=== PATIENT | male | born 1955 | race American Indian/Alaskan Native ===

== ENCOUNTER 2016-12-23 08:35 | Emergency (ER) | payer SELFPAY ==
[2016-12-23 09:18] LABS: Basophils % (Auto) 0.4 % (0.0-1.8); Eosinophils % (Auto) 1.4 % (0.0-4.3); Hematocrit 41.3 % (35.5-45.6); Hemoglobin 13.7 gm/dl (11.8-15.2); Mean Corpuscular HGB Conc 33 % (32-34); Mean Corpuscular Hemoglobin 29 pg (28-32); Mean Corpuscular Volume 88 fl (84-94); Platelet Count 232 K/mm3 (140-440); Red Blood Count 4.71 M/mm3 (3.65-5.03); Red Cell Distribution Width 16.6 % (13.2-15.2)
[2016-12-23 09:26] LABS: Alanine Aminotransferase 10 units/L (7-56); Albumin 3.8 g/dL (3.9-5); Albumin/Globulin Ratio 0.8 %; Alkaline Phosphatase 99 units/L (35-129); Anion Gap 16 mmol/L; Bilirubin,Total 0.3 mg/dL (0.1-1.2); Blood Urea Nitrogen 18 mg/dL (9-20); Calcium 9.5 mg/dL (8.4-10.2); Carbon Dioxide 28 mmol/L (22-30); Chloride 99.2 mmol/L (98-107); Glucose 79 mg/dL (75-100); Lipase 34 units/L (13-60); Potassium 4.9 mmol/L (3.6-5.0); Sodium 138 mmol/L (137-145); Total Protein 8.3 g/dL (6.3-8.2)
[2016-12-23] MEDS ORDERED: NACL 0.9% 1000 ML 1,000 ML IV ONE (11:41)
--- NOTE | 2016-12-23 11:49 | Emergency Department Report ---
HPI - General Chief Complaint: Abdominal Pain Time Seen by Provider: 12/23/16 11:43 - HPI HPI: Chief complaint: Difficulty swallowing HPI: Patient is a 61-year-old male with a history of GERD and hypertension who states for the last several weeks is unable to eat anything solid without chewing it into very small pieces. Patient states that he doesn't do that it comes back up. Patient states if he drinks too quickly even that woke him back up. Patient denies any pain. Patient is out of his blood pressure medicine and states he was going to [facility] today to have that refilled. She denies any fever, chest pain, diarrhea, abdominal pain. Mode of arrival: [private car] Source: [Patient] Began: Several weeks ago Duration: 2 weeks ago Context: Patient has history of GERD Quality: Pain-free Severity: 0 out of 10 Improved with: See above Worsened with: See above Associated signs and symptoms: See above ED Past Medical Hx - Past Medical History Previous Medical History?: Yes Hx Hypertension: Yes Additional medical history: Angioedema - Surgical History Past Surgical History?: No - Social History Smoking Status: Current Every Day Smoker Substance Use Type: None - Medications Home Medications: Home Medications Medication Instructions Recorded Confirmed Last Taken Type Pantoprazole [Protonix] 40 mg PO QDAY #30 tablet 04/05/16 Unknown Rx Hydrochlorothiazide [HCTZ] 25 mg PO QDAY #30 tablet 12/23/16 Unknown Rx ED Review of Systems ROS: Stated complaint: ABD PAIN Other details as noted in HPI ROS Constitutional: No fever ENT: No uri symptoms Cardiovascular: No chest pain Respiratory: No sob or cough GI: No nausea vomiting or diarrhea : No dysuria frequency or urgency, Skin: No rash Neuro: No focal weakness or numbness Psych: No depression Dragan/lymph: No edema Physical Exam - Physical Exam Vital Signs: Vital Signs 12/23/16 08:43 Temperature 98.0 F Pulse Rate 72 Respiratory 18 Rate Blood Pressure 171/104 O2 Sat by Pulse 98 Oximetry Physical Exam: GENERAL: The patient is well-developed well-nourished []. [] HEENT: Normocephalic. Atraumatic. Extraocular motions are intact. Patient has moist mucous membranes. NECK: Supple. No meningitic signs are noted. There is no adenopathy noted. CHEST/LUNGS: Clear to auscultation. There is no respiratory distress noted. HEART/CARDIOVASCULAR: Regular. There is no tachycardia. There is no gallop rub or murmur. ABDOMEN: Abdomen is soft, nontender. Patient has normal bowel sounds. There is no abdominal distention. SKIN: There is no rash. There is no edema. There is no diaphoresis. NEURO: The patient is awake, alert, and oriented. The patient is cooperative. The patient has no focal neurologic deficits. The patient has normal speech. MUSCULOSKELETAL: There is no tenderness or deformity. There is no limitation range of motion. There is no evidence of acute injury. ED Course Vital Signs 12/23/16 08:43 Temperature 98.0 F Pulse Rate 72 Respiratory 18 Rate Blood Pressure 171/104 O2 Sat by Pulse 98 Oximetry - Reevaluation(s) Reevaluation #1: 12/23/16 12:09 Discussed patient with nurse practitioner for [facility] Terri Pascual. She will see the patient in the emergency department and arrange for an outpatient upper endoscopy. ED Medical Decision Making - Lab Data Result diagrams: 12/23/16 08:55 12/23/16 08:55 Laboratory Tests 12/23/16 08:55 Total Protein 8.3 H Albumin 3.8 L Lipase 34 Critical care attestation.: If time is entered above; I have spent that time in minutes in the direct care of this critically ill patient, excluding procedure time. ED Disposition Clinical Impression: Essential hypertension Dysphagia Qualifiers: Dysphagia type: unspecified Qualified Code(s): R13.10 - Dysphagia, unspecified Disposition: DISCHARGED TO HOME OR SELFCARE Is pt being admited?: No Does the pt Need Aspirin: No Condition: Stable Instructions: Esophageal Stricture (ED), Hypertension (ED) Additional Instructions: Take Pepcid complete OTC daily. Be sure to chew the tablet well. Prescriptions: Hydrochlorothiazide [HCTZ] 25 mg PO QDAY #30 tablet Referrals: PRIMARY CARE, [Primary Care Provider] - 3-5 Days [facility] [Provider Group] - 3-5 Days Time of Disposition: 12:04
[2016-12-23 12:27] VITALS: BP 171/94
== END 2016-12-23 12:27 | disposition home or self-care (01) ==
LOC: ED 08:35
DX: R13.10 Dysphagia, unspecified (principal); I10 Essential (primary) hypertension; F17.200 Nicotine dependence, unspecified, uncomplicated
CPT/HCPCS: 36415; 80053; 83690; 85025; 99283; J7030

== ENCOUNTER 2017-10-04 19:21 | Emergency (ER) | payer MEDICAID ==
[2017-10-04 19:51] VITALS: BP 170/109
[2017-10-04 20:28] LABS: Basophils % (Auto) 0.5 % (0.0-1.8); Eosinophils % (Auto) 1.2 % (0.0-4.3); Hematocrit 35.2 % (35.5-45.6); Mean Corpuscular HGB Conc 34 % (32-34); Mean Corpuscular Hemoglobin 32 pg (28-32); Mean Corpuscular Volume 93 fl (84-94); Platelet Count 279 K/mm3 (140-440); Red Blood Count 3.79 M/mm3 (3.65-5.03); Red Cell Distribution Width 15.1 % (13.2-15.2); White Blood Count 5.5 K/mm3 (4.5-11.0)
[2017-10-04 20:43] LABS: Alanine Aminotransferase 13 units/L (7-56); Albumin 3.8 g/dL (3.9-5); Albumin/Globulin Ratio 0.8 %; Alkaline Phosphatase 89 units/L (35-129); Anion Gap 18 mmol/L; BUN/Creatinine Ratio 11; Blood Urea Nitrogen 11 mg/dL (9-20); Calcium 9.5 mg/dL (8.4-10.2); Carbon Dioxide 28 mmol/L (22-30); Chloride 97.5 mmol/L (98-107); Glucose 96 mg/dL (75-100); Lipase 13 units/L (13-60); Potassium 4.9 mmol/L (3.6-5.0); Sodium 139 mmol/L (137-145); Total Protein 8.4 g/dL (6.3-8.2)
== END 2017-10-04 21:45 | disposition left against medical advice (07) ==
LOC: ED 19:21
DX: M54.5 Low back pain (principal); R11.0 Nausea; Z53.21 Procedure and treatment not carried out due to patient leaving prior to being seen by health care provider; R10.9 Unspecified abdominal pain
CPT/HCPCS: 36415; 80053; 83690; 85025

== ENCOUNTER 2017-12-25 14:39 | Emergency (ER) | payer SELFPAY ==
--- NOTE | 2017-12-25 15:59 | Emergency Department Report ---
ED Rash HPI - HPI Chief Complaint: Skin Rash Stated Complaint: BACK PAIN Time Seen by Provider: 12/25/17 15:11 Duration: 4 months Location: Back (left flank and left back) Suspected Cause: Unknown Rash Symptoms: Yes Blistering, No Itching, No Facial Swelling, No Tongue/Oral Swelling, No Breathing Difficulties, No Choking Sensation, No Wheezing/Dyspnea, No Peeling, No Fever, No Lightheaded, No Malaise, No Myalgias Severity: severe Other History: This is a 62 y.o. male that presents with a painful rash to left flank traveling to left mid back for 4 months on and off. The rash is starting to heal and crusting but pain is still 10/10. He is currently followed by [facility] and primary care provider Dr. Crawley. PCP gave him tylenol 3 for pain control, which is taking but unable to sleep or sit in a chair because the pain is unbearable. Denies swelling, itching, fever, or discharge. ED Review of Systems ROS: Stated complaint: BACK PAIN Other details as noted in HPI Constitutional: denies: chills, fever Respiratory: denies: cough, shortness of breath, wheezing Cardiovascular: denies: chest pain, palpitations Gastrointestinal: denies: abdominal pain, nausea, diarrhea Musculoskeletal: denies: back pain, joint swelling, arthralgia, myalgia Skin: rash (painful rash to left flank to left back). denies: lesions ED Past Medical Hx - Past Medical History Hx Hypertension: Yes Additional medical history: Angioedema,shingles - Surgical History Additional Surgical History: esophagus cancer aug 17 2017, chemo and radiation - Social History Smoking Status: Former Smoker Substance Use Type: None - Medications Home Medications: Home Medications Medication Instructions Recorded Confirmed Last Taken Type Pantoprazole [Protonix] 40 mg PO QDAY #30 tablet 04/05/16 Unknown Rx Hydrochlorothiazide [HCTZ] 25 mg PO QDAY #30 tablet 12/23/16 Unknown Rx Capsaicin [Capzasin-Hp] 1 applicatio TP TID PRN #1 cream 12/25/17 Unknown Rx Valacyclovir HCl [Valtrex] 1,000 mg PO TID #60 tablet 12/25/17 Unknown Rx traMADol [Ultram 50 MG tab] 50 mg PO Q6HR PRN #30 tablet 12/25/17 Unknown Rx Rash Exam - Exam General: Vital signs noted. No distress. Alert and acting appropriately. HEENT: No Periorbital Edema, No Conjuctival Injection, No Chemosis, No Perioral Edema, No Tongue Edema, No Uvular Edema, No Compromised Airway, No Drooling Lungs: Yes Good Air Exchange, No Wheezes, No Ronchi, No Stridor, No Cough, No Labored Respirations, No Retractions, No Use of Accessory Muscles, No Other Abnormal Lung Sounds Heart: Yes Regular, No Murmur Skin: Yes Maculopapular Rash (healing maculopapular rash following dermatone on left flank following to left mid back, tender), Yes Encrustations, No Urticarial Rash, No Morbilliform rash, No Bulla(e), No Excoriations, No Weeping , No Tenderness, No Erythema, No Edema, No Other ED Course Vital Signs 12/25/17 15:05 Temperature 98 F Pulse Rate 109 H Respiratory 20 Rate Blood Pressure 168/100 O2 Sat by Pulse 100 Oximetry ED Medical Decision Making - Medical Decision Making This is a 62 y.o. male with painful rash from shingles for 4 months on and off. He is currently followed by oncology at [facility] and PCP Dr. Crawley. He is taking tylenol 3 for pain with no improvement of pain. Patient examined by me. Mildly distress noted. Vitals stable. 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 Patient given valtrex 1 gram po once in ER. Start valacyclovir 1,000 mg po tid x 20 days, tramadol 50 mg po q6h PRN #20, and capsaicin. Discussed plan with patient and educated on management of postviral herpatic neurologa. Informed symptoms may last for 4-6 months. Critical care attestation.: If time is entered above; I have spent that time in minutes in the direct care of this critically ill patient, excluding procedure time. ED Disposition Clinical Impression: Postherpetic neuralgia Herpes zoster Qualifiers: Herpes zoster complications: without complications Qualified Code(s): B02.9 - Zoster without complications Disposition: TO HOME OR SELFCARE Is pt being admited?: No Does the pt Need Aspirin: No Condition: Stable Instructions: Herpes Zoster (ED) Additional Instructions: Keep the rash clean and dry to reduce the risk of bacterial infection. Avoid topical antibiotics or dressings with adhesive that may cause irritation and may delay healing of the rash. Avoid wearing irritating natural fiber clothing. You are having postherpetic pain and may need to focus attention on something other than pain. Try using capsacin cream to help control pain. Prescriptions: Capsaicin [Capzasin-Hp] 1 applicatio TP TID PRN #1 cream PRN Reason: Pain traMADol [Ultram 50 MG tab] 50 mg PO Q6HR PRN #30 tablet PRN Reason: Pain Valacyclovir HCl [Valtrex] 1,000 mg PO TID #60 tablet Referrals: [facility] [Outside] - 3-5 Days [facility] [Outside] - 3-[address] [facility] [Outside] - 3-5 Days Time of Disposition: 16:14 Print Language: DIVEHI
[2017-12-25 16:34] VITALS: BP 160/91
[2017-12-25] MEDS ORDERED: VALTREX PO ONE (17:00)
== END 2017-12-25 16:33 | disposition home or self-care (01) ==
LOC: ED 14:39
DX: B02.9 Zoster without complications (principal); B02.29 Other postherpetic nervous system involvement; I10 Essential (primary) hypertension; Z87.891 Personal history of nicotine dependence
CPT/HCPCS: 99282

== ENCOUNTER 2018-01-08 11:05 | Emergency (ER) | payer SELFPAY ==
[2018-01-08 11:57] LABS: Basophils % (Auto) 0.4 % (0.0-1.8); Eosinophils % (Auto) 0.3 % (0.0-4.3); Hematocrit 35.7 % (35.5-45.6); Hemoglobin 11.7 gm/dl (11.8-15.2); Lymphocytes # (Auto) 0.5 K/mm3 (1.2-5.4); Lymphocytes % (Auto) 6.2 % (13.4-35.0); Mean Corpuscular HGB Conc 33 % (32-34); Mean Corpuscular Hemoglobin 31 pg (28-32); Mean Corpuscular Volume 95 fl (84-94); Monocytes % (Auto) 10.9 % (0.0-7.3); Platelet Count 218 K/mm3 (140-440); Red Blood Count 3.76 M/mm3 (3.65-5.03); Red Cell Distribution Width 18.1 % (13.2-15.2)
[2018-01-08 12:07] LABS: INR 0.88 (0.87-1.13); Partial Thromboplastin Time 25.2 Sec. (24.2-36.6)
[2018-01-08 12:12] LABS: Alanine Aminotransferase 17 units/L (7-56); Albumin 3.4 g/dL (3.9-5); BUN/Creatinine Ratio 9; Blood Urea Nitrogen 11 mg/dL (9-20); Hemolysis Index 3; Lipase 13 units/L (13-60)
[2018-01-08] MEDS ORDERED: APRESOLINE IV ONE (18:18)
[2018-01-08] MEDS ORDERED: NORMODYNE 200 MG in D5W 160 ML IV ONE (19:01)
--- NOTE | 2018-01-08 19:08 | Emergency Department Report ---
<LOLYBARBIE - Last Filed: 01/08/18 19:59> ED Extremity Problem HPI - General Chief complaint: Extremity Problem,Nontraumatic Stated complaint: BILATERAL ANKLE PAIN Time Seen by Provider: 01/08/18 17:57 Source: patient, family Mode of arrival: Wheelchair Limitations: No Limitations - History of Present Illness Initial comments: Patient complains of bilateral foot and ankle pain for 2 days. He denies any chest pain, redness of breath, abdominal pain, headache or nausea or vomiting. MD Complaint: extremity pain, extremity swelling -: days(s) (2) Location: bilateral lower extremity History of Same: Yes -: No fever, No associated chest pain Radiation: none Severity scale (0 -10): 6 Consistency: constant Improves with: nothing Worsens with: nothing Associated Symptoms: denies other symptoms. denies: shortness of breath - Related Data Previous Rx's Medication Instructions Recorded Last Taken Type Pantoprazole [Protonix] 40 mg PO QDAY #30 tablet 04/05/16 Unknown Rx Hydrochlorothiazide [HCTZ] 25 mg PO QDAY #30 tablet 12/23/16 Unknown Rx Capsaicin [Capzasin-Hp] 1 applicatio TP TID PRN #1 cream 12/25/17 Unknown Rx Valacyclovir HCl [Valtrex] 1,000 mg PO TID #60 tablet 12/25/17 Unknown Rx traMADol [Ultram 50 MG tab] 50 mg PO Q6HR PRN #30 tablet 12/25/17 Unknown Rx Allergies Allergy/AdvReac Type Severity Reaction Status Date / Time blood pressure medication Allergy Angioedema Uncoded 12/23/16 08:50 ED Review of Systems ROS: Stated complaint: BILATERAL ANKLE PAIN Other details as noted in HPI Comment: All other systems reviewed and negative Constitutional: denies: chills, diaphoresis, fever Eyes: denies: eye discharge ENT: denies: dental pain Respiratory: denies: shortness of breath Cardiovascular: denies: chest pain, palpitations Endocrine: no symptoms reported Gastrointestinal: denies: abdominal pain, nausea, vomiting, diarrhea, hematemesis Genitourinary: denies: urgency, dysuria, frequency Musculoskeletal: joint swelling, arthralgia Skin: denies: lesions, change in color Neurological: denies: headache, numbness, paresthesias Psychiatric: denies: auditory hallucinations, homicidal thoughts, suicidal thoughts Hematological/Lymphatic: denies: easy bleeding, easy bruising ED Past Medical Hx - Past Medical History Previous Medical History?: Yes Hx Hypertension: Yes Hx of Cancer: Yes (esophagus) Additional medical history: Angioedema,shingles - Surgical History Past Surgical History?: Yes Additional Surgical History: esophagus cancer aug 17 2017, chemo and radiation - Social History Smoking Status: Former Smoker Substance Use Type: Prescribed - Medications Home Medications: Home Medications Medication Instructions Recorded Confirmed Last Taken Type Pantoprazole [Protonix] 40 mg PO QDAY #30 tablet 04/05/16 Unknown Rx Hydrochlorothiazide [HCTZ] 25 mg PO QDAY #30 tablet 12/23/16 Unknown Rx Capsaicin [Capzasin-Hp] 1 applicatio TP TID PRN #1 cream 12/25/17 Unknown Rx Valacyclovir HCl [Valtrex] 1,000 mg PO TID #60 tablet 12/25/17 Unknown Rx traMADol [Ultram 50 MG tab] 50 mg PO Q6HR PRN #30 tablet 12/25/17 Unknown Rx ED Physical Exam - General Limitations: No Limitations General appearance: alert - Head Head exam: Present: atraumatic, normocephalic, normal inspection - Eye Eye exam: Present: normal appearance, PERRL, EOMI - ENT ENT exam: Present: normal exam, normal orophraynx, mucous membranes moist - Neck Neck exam: Present: normal inspection. Absent: tenderness - Respiratory Respiratory exam: Present: normal lung sounds bilaterally - Cardiovascular Cardiovascular Exam: Present: regular rate, normal rhythm - GI/Abdominal GI/Abdominal exam: Present: soft, normal bowel sounds. Absent: distended, tenderness, guarding, rebound - Extremities Exam Extremities exam: Present: tenderness, normal capillary refill, pedal edema, joint swelling. Absent: calf tenderness - Back Exam Back exam: Present: normal inspection - Neurological Exam Neurological exam: Present: alert, oriented X3, CN II-XII intact - Psychiatric Psychiatric exam: Present: normal affect, normal mood - Skin Skin exam: Present: warm, dry, intact ED Course Vital Signs 01/08/18 01/08/18 01/08/18 11:24 16:02 18:06 Temperature 98.6 F 97.9 F 98.0 F Pulse Rate 91 H 85 85 Respiratory 16 18 21 Rate Blood Pressure 155/92 151/107 Blood Pressure 196/117 [Left] O2 Sat by Pulse 100 99 100 Oximetry 01/08/18 01/08/18 01/08/18 18:10 19:26 19:31 Temperature Pulse Rate 96 H Respiratory 21 28 H 26 H Rate Blood Pressure Blood Pressure [Left] O2 Sat by Pulse 100 99 98 Oximetry 01/08/18 01/08/18 01/08/18 19:45 20:01 20:15 Temperature Pulse Rate 101 H 103 H 89 Respiratory 26 H 24 23 Rate Blood Pressure Blood Pressure [Left] O2 Sat by Pulse 95 95 100 Oximetry 01/08/18 01/08/18 01/08/18 20:31 20:40 20:45 Temperature Pulse Rate 87 96 H Respiratory 18 19 Rate Blood Pressure 115/84 Blood Pressure 144/91 [Left] O2 Sat by Pulse 98 97 Oximetry 01/08/18 01/08/18 01/08/18 21:00 21:15 21:30 Temperature Pulse Rate 87 89 89 Respiratory 22 22 18 Rate Blood Pressure 123/79 130/83 114/76 Blood Pressure [Left] O2 Sat by Pulse 97 96 96 Oximetry 01/08/18 01/08/18 01/08/18 21:45 22:00 22:15 Temperature Pulse Rate 86 91 H 89 Respiratory 20 26 H 23 Rate Blood Pressure 121/78 128/82 Blood Pressure [Left] O2 Sat by Pulse 96 96 Oximetry 01/08/18 01/08/18 01/08/18 22:24 22:30 22:45 Temperature Pulse Rate 88 86 87 Respiratory 19 19 19 Rate Blood Pressure 128/82 117/80 124/85 Blood Pressure [Left] O2 Sat by Pulse 96 Oximetry 01/08/18 01/08/18 01/08/18 23:00 23:15 23:30 Temperature Pulse Rate 88 84 81 Respiratory 23 20 23 Rate Blood Pressure 137/84 130/83 138/84 Blood Pressure [Left] O2 Sat by Pulse 95 Oximetry 01/08/18 01/09/18 01/09/18 23:45 00:00 00:15 Temperature Pulse Rate 85 86 85 Respiratory 21 19 19 Rate Blood Pressure 138/88 139/90 143/96 Blood Pressure [Left] O2 Sat by Pulse 96 97 Oximetry 01/09/18 01/09/18 01/09/18 00:30 00:45 01:00 Temperature Pulse Rate 81 82 82 Respiratory 17 14 18 Rate Blood Pressure 129/87 126/86 126/89 Blood Pressure [Left] O2 Sat by Pulse Oximetry 01/09/18 01:15 Temperature Pulse Rate 83 Respiratory 19 Rate Blood Pressure 130/87 Blood Pressure [Left] O2 Sat by Pulse Oximetry - Reevaluation(s) Reevaluation #1: 01/08/18 20:10 I discussed patient with Dr. Hodge at shift change. Patient care was transferred to Dr. Thompson for further management in the ED, reevaluation and disposition. Patient is medically stable at the point of transfer of care. ED Medical Decision Making - Lab Data Result diagrams: 01/08/18 19:04 01/08/18 19:04 - Medical Decision Making Gouty arthritis. DVT Uncontrolled Hypertension. Critical care attestation.: If time is entered above; I have spent that time in minutes in the direct care of this critically ill patient, excluding procedure time. ED Disposition Clinical Impression: DVT (deep venous thrombosis) Disposition: - TO HOME OR SELFCARE Does the pt Need Aspirin: No Condition: Stable Instructions: Hypertension (ED), Deep Venous Thrombosis (ED) Additional Instructions: Continue your eliquis Tylenol [id number] as needed as directed see her regular doctor return if worse Referrals: PATITO WASSERMAN JR, MD [Primary Care Provider] - 3-5 Days <MARTHA THOMPSON - Last Filed: 01/09/18 02:46> ED Medical Decision Making - Lab Data Result diagrams: 01/08/18 19:04 01/08/18 19:04 ED Disposition Is pt being admited?: No Time of Disposition: 02:46
[2018-01-08 19:27] LABS: Basophils # (Auto) 0.1 K/mm3 (0.0-0.1); Basophils % (Auto) 0.6 % (0.0-1.8); Eosinophils % (Auto) 0.2 % (0.0-4.3); Hematocrit 35.9 % (35.5-45.6); Hemoglobin 11.9 gm/dl (11.8-15.2); Lymphocytes # (Auto) 0.8 K/mm3 (1.2-5.4); Lymphocytes % (Auto) 7.9 % (13.4-35.0); Mean Corpuscular HGB Conc 33 % (32-34); Mean Corpuscular Hemoglobin 32 pg (28-32); Mean Corpuscular Volume 95 fl (84-94); Monocytes # (Auto) 1.1 K/mm3 (0.0-0.8); Monocytes % (Auto) 10.8 % (0.0-7.3); Platelet Count 190 K/mm3 (140-440); Red Blood Count 3.78 M/mm3 (3.65-5.03); Red Cell Distribution Width 17.8 % (13.2-15.2)
[2018-01-08 19:31] LABS: INR 0.92 (0.87-1.13); Partial Thromboplastin Time 23.8 Sec. (24.2-36.6)
[2018-01-08 19:41] LABS: Alanine Aminotransferase 16 units/L (7-56); BUN/Creatinine Ratio 13; Blood Urea Nitrogen 12 mg/dL (9-20); Calcium 8.7 mg/dL (8.4-10.2); Hemolysis Index 24
[2018-01-08] MEDS ORDERED: DECADRON IV ONE (19:58)
[2018-01-08] MEDS ORDERED: TORADOL IV ONE (19:59)
[2018-01-09 03:09] VITALS: BP 140/92
--- NOTE | 2018-01-11 09:14 | Vascular Lab Report ---
LOWER EXTREMITY VENOUS DUPLEX: REASON FOR EXAM: History of deep venous thrombosis. COMMENTS ON THE RIGHT: Acute deep venous thrombosis is seen involving the popliteal vein and the peroneal vein. The remaining veins visualized are freely compressible without evidence of internal echogenicity. Spontaneous and phasic flow is present proximally. COMMENTS ON THE LEFT: Acute deep venous thrombosis is seen in the common femoral vein, superficial femoral vein, popliteal vein and the peroneal vein. The remaining veins visualized are freely compressible without evidence of internal echogenicity. Spontaneous and phasic flow is absent proximally. IMPRESSION: Extensive acute deep venous thrombosis in the left lower extremity. Acute deep venous thrombosis in the right lower extremity.
== END 2018-01-09 03:24 | disposition home or self-care (01) ==
LOC: ED 11:05
DX: I82.493 Acute embolism and thrombosis of other specified deep vein of lower extremity, bilateral (principal); M10.9 Gout, unspecified; I10 Essential (primary) hypertension; C15.9 Malignant neoplasm of esophagus, unspecified; Z87.891 Personal history of nicotine dependence; Z88.8 Allergy status to other drugs, medicaments and biological substances
CPT/HCPCS: 36415; 80053; 83690; 84550; 85025; 85610; 85730; 93970; 96365; 96375; 99283; J0360; J1100; J1885

== ENCOUNTER 2021-10-27 03:58 | Emergency (ER) | payer SELFPAY ==
--- NOTE | 2021-10-27 04:08 | Emergency Department Report ---
ED CPR HPI - General Chief Complaint: Cardiac Arrest/CPR Stated Complaint: CARDIAC ARREST Time Seen by Provider: 10/27/21 04:01 Source: EMS, old records reviewed Mode of arrival: Stretcher Limitations: Other - History of Present Illness Initial Comments: Chief complaint cardiac arrest HPI: Is a 66-year-old male with a history of hypertension, gout herpes zoster who was discovered unresponsive person in the bathroom. Son heard his father vomiting. He heard a fall. Son performed CPR. Call came out at 3 AM. EMS arrived 311. Asystole initial rhythm. Rafi airway inserted. Patient received 4 doses of epinephrine, 1 dose of naloxone. Accu-Chek 90. Initial rhythm asystole developed into a PEA Complaint: found unresponsive Place: home Bystander CPR Performed: Yes Shock Advised: No Initial Findings in the Field: unresponsive ROSC in the Field: No Associated Injuries: No Treatments Prior to Arrival: other airway device (Rafi airway), chest compressions (Chest comparison), epinephrine mgs # (4 doses), other (1 dose of naloxone) - Related Data Previous Rx's Medication Instructions Recorded Last Taken Type Pantoprazole [Protonix] 40 mg PO QDAY #30 tablet 04/05/16 Unknown Rx hydroCHLOROthiazide [HCTZ] 25 mg PO QDAY #30 tablet 12/23/16 Unknown Rx Capsaicin [Capzasin-Hp] 1 applicatio TP TID PRN #1 cream 12/25/17 Unknown Rx Valacyclovir HCl [Valtrex] 1,000 mg PO TID #60 tablet 12/25/17 Unknown Rx traMADoL [Ultram 50 MG tab] 50 mg PO Q6HR PRN #30 tablet 12/25/17 Unknown Rx Allergies Allergy/AdvReac Type Severity Reaction Status Date / Time blood pressure medication Allergy Angioedema Uncoded 12/23/16 08:50 ED Review of Systems ROS: Stated complaint: CARDIAC ARREST Other details as noted in HPI Comment: Unobtainable due to pts medical conditions ED Past Medical Hx - Past Medical History Previous Medical History?: Yes Hx Hypertension: Yes Additional medical history: Angioedema,shingles - Surgical History Past Surgical History?: Yes Additional Surgical History: esophagus cancer aug 17 2017, chemo and radiation - Social History Smoking Status: Former Smoker Substance Use Type: Prescribed - Medications Home Medications: Home Medications Medication Instructions Recorded Confirmed Last Taken Type Pantoprazole [Protonix] 40 mg PO QDAY #30 tablet 04/05/16 Unknown Rx hydroCHLOROthiazide [HCTZ] 25 mg PO QDAY #30 tablet 12/23/16 Unknown Rx Capsaicin [Capzasin-Hp] 1 applicatio TP TID PRN #1 cream 12/25/17 Unknown Rx Valacyclovir HCl [Valtrex] 1,000 mg PO TID #60 tablet 12/25/17 Unknown Rx traMADoL [Ultram 50 MG tab] 50 mg PO Q6HR PRN #30 tablet 12/25/17 Unknown Rx ED Physical Exam - General Limitations: Other General appearance: other (Lifeless no spontaneous movement) - Head Head exam: Present: atraumatic, normocephalic - Eye Eye exam: Present: other (Fixed dilated pupils dry corneas) - ENT ENT exam: Present: other (Rafi airway device in place pale mucous membrane) - Neck Neck exam: Present: normal inspection, full ROM, other (JVD significant supine) - Respiratory Respiratory exam: Present: other (Equal chest rise. Ventilation no spontaneous respiration) - Cardiovascular Cardiovascular Exam: Present: other (No palpable pulse, auscultated cardiac sounds) - GI/Abdominal GI/Abdominal exam: Present: distended - Extremities Exam Extremities exam: Present: normal inspection, other (No deformity no erythema) - Neurological Exam Neurological exam: Present: other (No signs of life no spontaneous movement) - Psychiatric Psychiatric exam: Present: other (No signs of life no spontaneous movement) - Skin Skin exam: Present: pallor, other (Cold to touch) ED Medical Decision Making - Medical Decision Making Cardiac arrest: ACLS algorithm resuscitation continued emergency department, 2 doses of epinephrine, 1 dose calcium 1 dose of sodium bicarbonate and 1 dose dextrose, patient given 2 shocks 1 200 J second 200 J biphasic energy for ventricular fibrillation. Rhythm deteriorated to asystole. Time of 0351 total time of resuscitation in the field and in the emergency department 40 minutes. Patient received chest compressions throughout resuscitation. I performed the notification. 2 sons arrived to the emergency department. Patient had not been ill recently. Recently cleared by [facility]. He had received treatment for esophageal cancer. Critical care attestation.: If time is entered above; I have spent that time in minutes in the direct care of this critically ill patient, excluding procedure time. ED Disposition Clinical Impression: Cardiac arrest Disposition: 20 Is pt being admited?: No Does the pt Need Aspirin: No Condition: Stable Time of Disposition: 03:51
[2021-10-27] MEDS ORDERED: SODIUM BICARB 8.4% 50 MEQ/50 ML SYRINGE IV ONE (16:30)
[2021-10-27] MEDS ORDERED: ROCURONIUM 50 MG/5 ML INJ IV ONE (16:30)
[2021-10-27] MEDS ORDERED: CALCIUM CHLORIDE 1,000 MG/10 ML SYRINGE IV ONE (16:30)
[2021-10-27] MEDS ORDERED: EPINEPHrine 1 MG/10 ML SYRINGE ONE (16:30)
[2021-10-27] MEDS ORDERED: ETOMIDATE 20 MG/10 ML INJ IV ONE (16:30)
== END 2021-10-27 06:54 ==
LOC: ED 03:58
DX: I46.9 Cardiac arrest, cause unspecified (principal); Z87.891 Personal history of nicotine dependence
CPT/HCPCS: 92950; 99285; J0171; J3490